=== PATIENT | male | born 1990 | race American Indian/Alaskan Native ===

== ENCOUNTER 2022-02-14 12:35 | Emergency (ER) | payer SELFPAY ==
[2022-02-14] MEDS ORDERED: Ondansetron 4 MG Tab.DIS PO ONE (13:13)
[2022-02-14] MEDS ORDERED: LORazepam 1 MG Tab PO ONE (13:14)
[2022-02-14] MEDS ORDERED: Sertraline 50 MG Tab PO ONE (13:14)
[2022-02-14 13:17] LABS: ESTIMATED GFR 104 mL/min (>60)
== END 2022-02-14 15:45 ==
LOC: JP.ED 12:35
DX: T40.411A Poisoning by fentanyl or fentanyl analogs, accidental (unintentional), initial encounter (principal); F10.10 Alcohol abuse, uncomplicated; F17.210 Nicotine dependence, cigarettes, uncomplicated; Z88.0 Allergy status to penicillin; Z86.16 Personal history of COVID-19; Z20.822 Contact with and (suspected) exposure to COVID-19
CPT/HCPCS: 36415; 80053; 80305; 80307; 81001; 85025; 87635; 99283; A9270; Q0162; U0002

== ENCOUNTER 2022-03-21 22:36 | Emergency (ER) | payer SELFPAY ==
[2022-03-21] MEDS ORDERED: Sodium Chloride 0.9% 10 ML Syringe FLUSH PRN (22:39)
[2022-03-21] MEDS ORDERED: Sodium Chloride 0.9% 1,000 ML IV ONE (22:47)
[2022-03-21] MEDS ORDERED: Ketorolac 30 MG/ML SDV IVPUSH ONE (22:47)
[2022-03-21] MEDS ORDERED: Ondansetron 4 MG/2 ML SDV IVPUSH ONE (22:50)
[2022-03-22] LABS: TROPONIN I HIGH SENSITIVITY 5.6 pg/mL (<=60.3)
== END 2022-03-22 01:11 | disposition home or self-care (01) ==
LOC: JP.ED 22:36
DX: R07.89 Other chest pain (principal); F15.10 Other stimulant abuse, uncomplicated; F10.99 Alcohol use, unspecified with unspecified alcohol-induced disorder; Y90.0 Blood alcohol level of less than 20 mg/100 ml; Z88.0 Allergy status to penicillin
CPT/HCPCS: 36415; 80048; 80305; 80307; 84484; 85025; 96361; 96374; 96375; 99285; J1885; J2405; J3490; J7030

== ENCOUNTER 2022-03-23 12:26 | Emergency (ER) | payer SELFPAY | END 2022-03-23 15:56 | LOC: JP.ED 12:26 | DX: F15.10 Other stimulant abuse, uncomplicated (principal); F14.99 Cocaine use, unspecified with unspecified cocaine-induced disorder; F10.99 Alcohol use, unspecified with unspecified alcohol-induced disorder; Z72.0 Tobacco use; Z88.0 Allergy status to penicillin; Z20.822 Contact with and (suspected) exposure to COVID-19 | CPT/HCPCS: 36415; 80305-QW; 80307; 99285; U0002 ==